=== PATIENT | female | born 1955 | race Caucasian/White ===

== ENCOUNTER 2023-07-09 06:42 | Outpatient (RCR) | payer BC, SELFPAY | END 2023-07-09 23:59 | disposition home or self-care (01) | LOC: RPT 06:42 | PROVIDERS: ATTENDING PHYSICIAN Internal Medicine Hematology & Oncology | DX: S82.62XD Displaced fracture of lateral malleolus of left fibula, subsequent encounter for closed fracture with routine healing (principal); R26.89 Other abnormalities of gait and mobility | CPT/HCPCS: 97110; 97112; 97140 ==

== ENCOUNTER 2023-07-21 07:00 | Outpatient (RCR) | payer BC, SELFPAY | END 2023-08-11 12:02 | disposition home or self-care (01) | LOC: RPT 07:00 | PROVIDERS: ATTENDING PHYSICIAN Student in an Organized Health Care Education/Training Program | DX: S82.62XD Displaced fracture of lateral malleolus of left fibula, subsequent encounter for closed fracture with routine healing (principal); Z73.6 Limitation of activities due to disability; R26.89 Other abnormalities of gait and mobility | CPT/HCPCS: 97110; 97112 ==

== ENCOUNTER 2024-04-12 14:51 | Emergency (ER) | payer BC, SELFPAY ==
[2024-04-12 14:56] VITALS: BP 170/100
[2024-04-12 15:28] LABS: % Basophils 0.3 % (0-2); % Eosinophils 0.5 % (0-6); % Immature Granulocytes 0.4 % (0-0.5); % Lymphocytes 24.3 % (20.5-51.1); % Monocytes 7.3 % (1.7-9.3); % Neutrophils 67.2 % (42.2-75.2); Absolute Lymphocytes 1.8 10^3/uL (1.2-3.4); Absolute Monocytes 0.5 10^3/uL (0.1-0.6); Hematocrit 43.1 % (37.0-47.0); Hemoglobin 14.9 g/dL (12.0-16.0); Mean Corp Hgb Conc. 34.6 g/dL (33.0-37.0); Mean Corpuscular Volume 89.8 fL (81.0-99.0); Mean Platelet Volume 9.3 fL (7.4-10.4); Nucleated Red Blood Cells % 0 %; Platelet Count 289 10^3/uL (130-400); White Blood Cell Count 7.4 10^3/uL (4.8-10.8)
[2024-04-12 15:38] LABS: ALT (SGPT) 23 U/L (0-35); AST (SGOT) 25 U/L (14-36); Albumin 4.6 g/dl (3.5-5.0); Alkaline Phosphatase 108 U/L (38-126); Blood Urea Nitrogen 12 mg/dl (7-17); Calcium 9.8 mg/dl (8.4-10.2); Carbon Dioxide 24 mmol/L (22-30); Chloride 103 mmol/L (98-107); Glucose 120 mg/dl (70-99); Potassium 4.4 mmol/L (3.5-5.1); Sodium 139 mmol/L (135-145); Total Bilirubin 0.5 mg/dl (0.2-1.3); Total Protein 7.2 g/dl (6.3-8.2); eGFR > 60.00
[2024-04-12 17:00] VITALS: BP 147/104
--- NOTE | 2024-04-12 18:16 | ED.GENMED ---
History of Present Illness
General
Chief Complaint: Dizziness
Source: patient
Exam Limitations: none
Time Seen by Provider: 04/12/24 15:51
Nursing documentation reviewed up to this point in time: agreed with
History of Present Illness
History of Present Illness:
68-year-old female presenting to the emergency department today with concerns of room spinning dizziness that has been intermittent over the past 2 days. This initially started when she was in bed woke up felt dizzy increasing with movement but
decreasing when staying still. Denies associated symptoms numbness weakness changes in vision nausea or vomiting. Denies similar symptoms in the past. No head trauma. No neck pain.
Past History
Past History
ED Past Medical History: None
Social History
Tobacco: Non-smoker
Alcohol: Occasional
Drug: None
Review of Systems
Review of Systems
Allergies reviewed?: Yes
All Other Systems: ROS reviewed and negative except as documented in HPI and ROS
Phy Exam
Physical Exam
Physical Exam:
GENERAL: Alert , in no apparent distress
EYE: pupils equal and reactive
NECK: Supple, no significant adenopathy.
ENT: o/p clr, mmm.
CARDIAC: Regular rate and rhythm .
LUNGS: Clear breath sounds bilaterally, no acute respiratory distress, no wheezes/rales/rhonchi
ABDOMEN: Soft, without focal tenderness, no r/g, no cvat
NEUROLOGICAL: Alert and oriented, no focal neuro deficits 5 out of 5 upper and lower extremity strength normal sensation when palpating bilaterally normal finger-nose and [id number] no pronator drift
SKIN: Warm and dry, skin intact.
MUSCULOSKELETAL: No edema, well perfused.
PSYCH: Normal and appropriate interaction.
Course
Orders/Labs/Results
Orders:
Orders
04/12/24 15:01
Electrocardiogram (*1) Urgent
Reason for Study: Vertigo / Dizzy
EKG- Treatment ONCE
04/12/24 15:07
Complete Blood Count/With Diff Urgent
Comprehensive Metabolic Panel Urgent
04/12/24 16:06
CT Head W/o Iv Contrast Urgent
Comment:
Reason For Exam: dizzy, off balance
Pt Eval And Treat Urgent
Treatment: Vestibular
Activity Level: Ambulate
Abnormal Lab Results
04/12/24
15:07
Glucose 120 H mg/dl
(70-99)
04/12/24 15:07
04/12/24 15:07
Vital Signs
Initial and Last Documented VS:
Initial Vital Signs
Temp Pulse Resp BP Pulse Ox
98.1 F 84 16 170/100 98
04/12/24 14:56 04/12/24 14:56 04/12/24 14:56 04/12/24 14:56 04/12/24 14:56
Last Documented Vital Signs
Temp Pulse Resp BP Pulse Ox
98.1 F 96 16 147/104 96
04/12/24 14:56 04/12/24 17:00 04/12/24 17:00 04/12/24 17:00 04/12/24 17:00
MDM/Problems Addressed
MDM/Problems Addressed:
68-year-old female presenting to the emergency department today with concerns of room spinning dizziness over the past 2 days intermittently. Seems to be worse with movement and decreases when sitting still. No ongoing symptoms here not
reproducible on my physical examination denies any symptoms or concerns normal neurologic evaluation. Central process seems unlikely at this point normal coordination. Head CT was performed which did not show any acute findings. Patient seen by
PT that also felt this was a peripheral vertiginous syndrome. Patient able to walk and ambulate normally here advised for vestibular therapy and ENT follow-up. Return precautions given.
*Critical Care Note
Total Time (30-74mins, 75-104mins- exclusive of procedures): Not Applicable
ED Attending Note
-
Portions of this chart may have been created with voice recognition software.� Occasional wrong word or��sound alike� substitutions may have occurred due to the inherent limitations of voice recognition software.
Discharge Plan
Departure
Patient Disposition: Home (Routine Discharge)
Date of Disposition: 04/12/24
Time of Disposition: 18:16
Patient with high blood pressure during this ER visit?: No
Condition: Good
Covid-19: Not Applicable
Discharge Problem:
Vertigo
Instructions: Vertigo (a Type of Dizziness) (DC)
Prescriptions:
New
meclizine 25 mg tablet
25 mg PO BID PRN (Reason: motion sickness) Qty: 14 0RF
Referrals:
NONE,* [Family Provider] -
Vladimir Zavala MD [Active] - Follow up in 5-7 days
Activity Restrictions/Additional Instructions:
You came to the emergency department today with concerns of dizziness. Here you had reassuring labs and a normal head CT. Please follow closely with vestibular rehab and ENT as needed. Return to the emergency department for any worsening, new or
concerning symptoms.
Interventions
Interventions:
*Risk Screen - Suicide Last Done: 04/12/24 15:00
*Neglect/Abuse Screening Last Done: 04/12/24 15:00
*Nursing Disposition Last Done: 04/12/24 18:30
ED- Neurological Assessment Last Done: 04/12/24 17:00
ED- Cardiac Assessment Last Done: 04/12/24 17:00
Discharge Date and Time
Discharge Date/Time: 04/12/24 18:30
Print Language: GUINEAN
== END 2024-04-12 18:30 | disposition home or self-care (01) ==
LOC: EMR 14:51
PROVIDERS: EMERGENCY PHYSICIAN Emergency Medicine
DX: R42 Dizziness and giddiness (principal)
CPT/HCPCS: 99285; 70450; 80053; 85025; 93005

== ENCOUNTER 2024-04-16 07:38 | Outpatient (RCR) | payer BC, SELFPAY | END 2024-04-16 23:59 | disposition home or self-care (01) | LOC: RPT 07:38 | PROVIDERS: ATTENDING PHYSICIAN Physician Assistant | DX: R42 Dizziness and giddiness (principal); Z73.6 Limitation of activities due to disability | CPT/HCPCS: 97161 ==